=== PATIENT | female | born 1935 | race Caucasian/White ===

== ENCOUNTER → 2017-04-10 | Outpatient (CLI) | payer MEDICARE ==
[~2017-04-10] MED LIST: HYDR25TA6 PO; LISI40TA PO; OXYC-302 PO
== END ==
LOC: RAD 12:20
PROVIDERS: ATTEND Nurse Practitioner Family
DX: M41.86 Other forms of scoliosis, lumbar region (principal); M48.54XD Collapsed vertebra, not elsewhere classified, thoracic region, subsequent encounter for fracture with routine healing
CPT/HCPCS: 72072; 72110

== ENCOUNTER 2017-09-15 09:43 | Emergency (ER) | payer MEDICARE ==
[~2017-09-15] VITALS: Ht 165.1 cm; Wt 64.0 kg
[2017-09-15] MEDS ORDERED: SODIUM CHLORIDE FLUSH 10ML SYR IVF ONE (10:00)
[2017-09-15] MEDS ORDERED: SODIUM CHLORIDE 0.9% 1,000ML IVBOLUS ONE (10:00)
[2017-09-15 10:19] LABS: BASOPHILS # (AUTO) 0.03 x10^3/uL (0-0.1); BASOPHILS % (AUTO) 1 % (0-1); EOSINOPHILS # (AUTO) 0.13 x10^3/uL (0-0.4); EOSINOPHILS % (AUTO) 3 % (1-7); LYMPHOCYTES # (AUTO) 0.98 x10^3/uL (1-3.4); LYMPHOCYTES % (AUTO) 19 % (22-44); MD NO; MEAN CORPUSCULAR HEMOGLOBIN 32.1 pg (27.0-34.8); MEAN CORPUSCULAR HGB CONC 33.3 g/dL (32.4-35.8); MEAN CORPUSCULAR VOLUME 96.2 fL (80-100); MONOCYTES # (AUTO) 0.49 x10^3/uL (0.2-0.8); MONOCYTES % (AUTO) 10 % (2-9); NEUTROPHILS # (AUTO) 3.45 x10^3/uL (1.8-6.8); NEUTROPHILS % (AUTO) 68 % (42-75); PLATELET COUNT 214 x10^3/uL (130-400); RED BLOOD COUNT 3.32 x10^6/uL (3.82-5.3); RED CELL DISTRIBUTION WIDTH 14.3 % (9.6-15.2)
[2017-09-15 10:31] LABS: ALANINE AMINOTRANSFERASE 24 U/L (12-78); ALBUMIN 3.4 g/dL (3.4-5.0); ANION GAP 8 mmol/L (5-15); CALCIUM 8.5 mg/dL (8.5-10.1); CHLORIDE 109 mmol/L (98-107); CREATININE 1.88 mg/dL (0.55-1.02)
[2017-09-15 10:36] LABS: ALKALINE PHOSPHATASE 73 U/L (45-117); BILIRUBIN,TOTAL 0.6 mg/dL (0.2-1.0); TROPONIN I < 0.015 ng/mL (0.000-0.045)
[2017-09-15 11:21] VITALS: BP 122/64
== END 2017-09-15 11:35 | disposition home or self-care (01) ==
LOC: ED 11:25
DX: I95.9 Hypotension, unspecified (principal)
CPT/HCPCS: 36415; 71046; 80053; 84484; 85025; 93005; 96360; 99285; J7030

== ENCOUNTER 2017-09-29 10:04 | Observation (INO) | payer MEDICARE ==
[~2017-09-29] VITALS: Ht 165.1 cm; Wt 65.4 kg
[2017-09-29] MEDS ORDERED: LEVO50TA5 PO (10:19)
[2017-09-29] MEDS ORDERED: AMLO10TA2 PO (10:19)
[2017-09-29] MEDS ORDERED: MORPHINE SULFATE 4 MG/ML, 1ML ONE (10:24)
[2017-09-29] MEDS ORDERED: ONDANSETRON ODT 4 MG ONE (10:25)
[2017-09-29] MEDS ORDERED: SODIUM CHLORIDE 0.9% 1,000ML IVBOLUS ONE (10:30)
[2017-09-29] MEDS ORDERED: MORPHINE SULFATE 4 MG/ML, 1ML IVPush PRN (10:30)
[2017-09-29] MEDS ORDERED: ONDANSETRON ODT 4 MG PO ONE (10:30)
[2017-09-29] MEDS ORDERED: PLEASE ENTER HEIGHT AND WEIGHT MC SCH (10:30)
[2017-09-29] MEDS ORDERED: SODIUM CHLORIDE FLUSH 10ML SYR IVF ONE (10:30)
[2017-09-29 10:49] LABS: BASOPHILS # (AUTO) 0.02 x10^3/uL (0-0.1); BASOPHILS % (AUTO) 0 % (0-1); EOSINOPHILS # (AUTO) 0.08 x10^3/uL (0-0.4); EOSINOPHILS % (AUTO) 1 % (1-7); LYMPHOCYTES # (AUTO) 0.72 x10^3/uL (1-3.4); LYMPHOCYTES % (AUTO) 12 % (22-44); MD NO; MEAN CORPUSCULAR HEMOGLOBIN 32.4 pg (27.0-34.8); MEAN CORPUSCULAR HGB CONC 33.4 g/dL (32.4-35.8); MEAN CORPUSCULAR VOLUME 96.8 fL (80-100); MEAN PLATELET VOLUME 8.8 fL (7.4-10.4); MONOCYTES % (AUTO) 5 % (2-9); NEUTROPHILS # (AUTO) 4.75 x10^3/uL (1.8-6.8); NEUTROPHILS % (AUTO) 81 % (42-75); PLATELET COUNT 203 x10^3/uL (130-400); RED BLOOD COUNT 3.23 x10^6/uL (3.82-5.3); RED CELL DISTRIBUTION WIDTH 14.4 % (9.6-15.2)
[2017-09-29 10:58] LABS: INTERNATIONAL NORMALIZED RATIO 1.04 (0.93-1.1); PROTHROMBIN TIME 10.7 Seconds (9.6-11.5)
[2017-09-29 11:01] LABS: ALANINE AMINOTRANSFERASE 22 U/L (12-78); ALBUMIN 3.4 g/dL (3.4-5.0); ANION GAP 7 mmol/L (5-15); CALCIUM 9.5 mg/dL (8.5-10.1); CHLORIDE 111 mmol/L (98-107); CREATININE 1.84 mg/dL (0.55-1.02)
[2017-09-29 11:05] LABS: ALKALINE PHOSPHATASE 62 U/L (45-117); BILIRUBIN,TOTAL 0.4 mg/dL (0.2-1.0); TOTAL PROTEIN 6.7 g/dL (6.4-8.2)
[2017-09-29 13:39] LABS: MICROSCOPIC AUTO
[2017-09-29 13:40] LABS: CULTURE INDICATED? YES
[2017-09-29] MEDS ORDERED: ACETAMINOPHEN 325 MG TABLET PO PRN (14:00)
[2017-09-29 15:05] VITALS: BP 123/68
[2017-09-29] MEDS: SODIUM CHLORIDE 0.9% 1,000 ML IV SCH (16:40)
[2017-09-29] MEDS: HEPARIN 5,000 UNITS/ML, 1ML SQ SCH (16:40)
[2017-09-29] MEDS: CARVEDILOL 6.25 MG TABLET PO SCH (17:56)
[2017-09-29 18:33] VITALS: BP 119/68
[2017-09-29] MEDS: LISINOPRIL 20 MG TABLET PO SCH (20:16)
[2017-09-30] MEDS: HEPARIN 5,000 UNITS/ML, 1ML SQ SCH ×2 (01:15→08:22)
[2017-09-30 02:01] VITALS: BP 122/72
[2017-09-30 05:30] LABS: ANION GAP 5 mmol/L (5-15); CALCIUM 8.1 mg/dL (8.5-10.1); CHLORIDE 112 mmol/L (98-107); CREATININE 1.49 mg/dL (0.55-1.02)
[2017-09-30] MEDS: CARVEDILOL 6.25 MG TABLET PO SCH (05:41)
[2017-09-30 07:18] VITALS: BP 108/62
[2017-09-30] MEDS: LISINOPRIL 20 MG TABLET PO SCH (08:15)
[2017-09-30] MEDS ORDERED: LEVOTHYROXINE 50 MCG TABLET PO SCH (09:00)
[2017-09-30] MEDS ORDERED: CEFTRIAXONE PMX 2GM/50ML 50 ML IV SCH (13:00)
[2017-09-30] MEDS: SODIUM CHLORIDE 0.9% 1,000 ML IV SCH (13:06)
[2017-09-30 13:14] VITALS: BP 123/70
[2017-10-01] MEDS ORDERED: AMLODIPINE 5 MG TABLET PO SCH (09:00)
== END 2017-09-30 17:05 | disposition left against medical advice (07) ==
LOC: ED 11:36 → EDIP 13:06 → INTOOBSV 13:06 → 4EST 15:02
PROVIDERS: ADMIT Hospitalist; ATTEND Hospitalist
DX: R55 Syncope and collapse (principal); I12.9 Hypertensive chronic kidney disease with stage 1 through stage 4 chronic kidney disease, or unspecified chronic kidney disease; N18.3 Chronic kidney disease, stage 3 (moderate); E03.9 Hypothyroidism, unspecified; I95.0 Idiopathic hypotension; N17.9 Acute kidney failure, unspecified; N39.0 Urinary tract infection, site not specified; Z80.41 Family history of malignant neoplasm of ovary; Z83.3 Family history of diabetes mellitus; Z91.81 History of falling
CPT/HCPCS: 0399T; 36415; 71045; 76770; 80048; 80053; 81001; 83605; 83690; 83880; 84484; 85025; 85379; 85610; 85730; 87077; 87086; 87186; 93005; 93306; 93880; 96361; 96365; 96372; 96375; 97161; 99285; G0378; J0696; J1644; J7030; Q0162

== ENCOUNTER → 2018-09-11 | Outpatient (CLI) | payer MEDICARE ==
[~2018-09-11] MED LIST changes: +AMLO10TA8 PO; +LEVO50TA5 PO
== END | disposition home or self-care (01) ==
LOC: RAD 10:38
PROVIDERS: ATTEND Physician Assistant Surgical
DX: M48.061 Spinal stenosis, lumbar region without neurogenic claudication (principal); M25.78 Osteophyte, vertebrae; M85.88 Other specified disorders of bone density and structure, other site; M43.8X4 Other specified deforming dorsopathies, thoracic region; M43.8X6 Other specified deforming dorsopathies, lumbar region; Z96.643 Presence of artificial hip joint, bilateral; Z98.1 Arthrodesis status
CPT/HCPCS: 72110

== ENCOUNTER → 2018-09-16 | Outpatient (CLI) | payer MEDICARE | END | disposition home or self-care (01) | LOC: RAD 14:57 | PROVIDERS: ATTEND Physician Assistant Surgical | DX: M48.04 Spinal stenosis, thoracic region (principal); M46.04 Spinal enthesopathy, thoracic region; G89.29 Other chronic pain; Z98.890 Other specified postprocedural states | CPT/HCPCS: 72072 ==

== ENCOUNTER 2019-03-03 09:48 | Emergency (ER) | payer MEDICARE ==
[~2019-03-03] VITALS: Ht 165.1 cm; Wt 64.0 kg
[2019-03-03] MEDS ORDERED: ONDANSETRON 2MG/ML, 2ML ONE (10:25)
[2019-03-03] MEDS ORDERED: MORPHINE SULFATE 4 MG/ML, 1ML ONE (10:25)
[2019-03-03] MEDS ORDERED: ONDANSETRON 2MG/ML, 2ML IVPush ONE (10:30)
[2019-03-03] MEDS ORDERED: SODIUM CHLORIDE FLUSH 10ML SYR IVF ONE (10:30)
[2019-03-03 10:42] LABS: BASOPHILS # (AUTO) 0.04 x10^3/uL (0-0.1); BASOPHILS % (AUTO) 1 % (0-1); EOSINOPHILS # (AUTO) 0.09 x10^3/uL (0-0.4); EOSINOPHILS % (AUTO) 1 % (1-7); LYMPHOCYTES # (AUTO) 0.86 x10^3/uL (1-3.4); LYMPHOCYTES % (AUTO) 10 % (22-44); MD NO; MEAN CORPUSCULAR HEMOGLOBIN 33.1 pg (27.0-34.8); MEAN CORPUSCULAR HGB CONC 32.2 g/dL (32.4-35.8); MEAN CORPUSCULAR VOLUME 102.6 fL (80-100); MEAN PLATELET VOLUME 9.9 fL (7.4-10.4); MONOCYTES # (AUTO) 0.33 x10^3/uL (0.2-0.8); MONOCYTES % (AUTO) 4 % (2-9); NEUTROPHILS # (AUTO) 7.04 x10^3/uL (1.8-6.8); NEUTROPHILS % (AUTO) 84 % (42-75); PLATELET COUNT 211 x10^3/uL (130-400); RED BLOOD COUNT 3.36 x10^6/uL (3.82-5.3); RED CELL DISTRIBUTION WIDTH 14.8 % (9.6-15.2)
[2019-03-03] MEDS: MORPHINE SULFATE 4 MG/ML, 1ML IVPush PRN ×2 (10:47→12:07)
--- NOTE | 2019-03-03 10:47 | NUR ---
PT UP TO BEDSIDE COMMODE. NO URINE SAMPLE PROVIDED. PT HAD ONE MEDIUM LOOSE STOOL. SAMPLE COLLECTED AND SENT. PT ASSISTED BACK TO BED, MEDICATED PER MAR. DENIES ANY FURTHER NEEDS OR CONCERNS AT THIS TIME. CALL LIGHT IN REACH.
[2019-03-03 10:49] LABS: ALBUMIN 3.2 g/dL (3.4-5.0); ANION GAP 5 mmol/L (5-15); CALCIUM 8.8 mg/dL (8.5-10.1); CHLORIDE 112 mmol/L (98-107)
[2019-03-03 10:52] LABS: ALANINE AMINOTRANSFERASE 27 U/L (12-78); ALKALINE PHOSPHATASE 82 U/L (45-117); BILIRUBIN,TOTAL 0.5 mg/dL (0.2-1.0); CREATININE 1.77 mg/dL (0.55-1.02); TOTAL PROTEIN 6.8 g/dL (6.4-8.2)
[2019-03-03] MEDS ORDERED: ONDANSETRON ODT 4 MG ONE (11:17)
--- NOTE | 2019-03-03 11:38 | NUR ---
PT ASSISTED TO BEDSIDE COMMODE. INCONTINENT OF DIARRHEA. VERY LIGHT ASSISTANCE REQUIRED. LINENS CHANGED. PT PROVIDED WITH BRIEF, AND NEW SOCKS. DENIES ANY FURTHER NEEDS OR CONCERNS AT THIS TIME. CALL LIGHT IN REACH.
[2019-03-03] MEDS ORDERED: SODIUM CHLORIDE 0.9% 1,000ML IVBOLUS ONE (12:00)
[2019-03-03 12:03] LABS: CLOSTRIDIUM DIFFICILE ANTIGEN NEGATIVE; CLOSTRIDIUM DIFFICILE TOXIN NEGATIVE (Negative)
[2019-03-03 12:32] VITALS: BP 120/54
--- NOTE | 2019-03-03 13:19 | NUR ---
pt resting in bed, eyes closed, respirations even and unlabored. NAD noted. have attempted to contact pt live-in grandson multiple times. messages left. call light in reach. Elqe - [phone], or [phone]
== END 2019-03-03 15:11 | disposition home or self-care (01) ==
LOC: ED 11:58
DX: R11.2 Nausea with vomiting, unspecified (principal); R19.7 Diarrhea, unspecified; R42 Dizziness and giddiness; R55 Syncope and collapse; R10.30 Lower abdominal pain, unspecified; I10 Essential (primary) hypertension; Z90.49 Acquired absence of other specified parts of digestive tract; Z90.89 Acquired absence of other organs; Z86.39 Personal history of other endocrine, nutritional and metabolic disease
CPT/HCPCS: 36415; 74176; 80053; 83690; 85025; 87324; 89055; 93005; 96361; 96374; 96375; 99284; J2270; J2405; J7030

== ENCOUNTER 2020-08-23 15:47 | Emergency (ER) | payer MEDICARE ==
[~2020-08-23] VITALS: Ht 160 cm; Wt 64.0 kg
[~2020-08-23 15:47] MED LIST changes: +AMLO-211 PO; -AMLO10TA8 PO; -LISI40TA PO; +LISI40TA9 PO; -OXYC-302 PO; +OXYC1TAB14 PO
[2020-08-23] MEDS ORDERED: SODIUM CHLORIDE FLUSH 10ML SYR IVF ONE (16:00)
--- NOTE | 2020-08-23 16:23 | NUR ---
ASSUMED CARE OF PATIENT. PATIENT REPORTS CENTER CHEST PAIN X2 WEEKS. PT ALSO REPORTS BACK PAIN. HX OF BACK SURGERY. SYSTEM DISPATCHER ON. NSR NOTED. CALL LIGHT IN PLACE. PT GIVEN A PILLOW AND BLANKET FOR COMFORT. VS STABLE. CALL LIGHT IN PLACE. WILL CONTINUE TO MONITOR.
[2020-08-23 16:36] LABS: ALANINE AMINOTRANSFERASE 17 U/L (12-78); ALBUMIN 3.1 g/dL (3.4-5.0); ANION GAP 6 mmol/L (5-15); CALCIUM 9.5 mg/dL (8.5-10.1); CHLORIDE 111 mmol/L (98-107); CREATININE 1.59 mg/dL (0.55-1.02)
[2020-08-23 16:39] LABS: BASOPHILS % (AUTO) 0 % (0-1); EOSINOPHILS % (AUTO) 1 % (1-7); LYMPHOCYTES % (AUTO) 13 % (22-44); MEAN CORPUSCULAR HEMOGLOBIN 32.7 pg (27.0-34.8); MEAN CORPUSCULAR HGB CONC 33.7 g/dL (32.4-35.8); MONOCYTES % (AUTO) 7 % (2-9); NEUTROPHILS % (AUTO) 79 % (42-75); PLATELET COUNT 247 x10^3/uL (130-400); RED BLOOD COUNT 3.73 x10^6/uL (3.82-5.3); RED CELL DISTRIBUTION WIDTH 13.4 % (9.6-15.2)
[2020-08-23 16:40] LABS: MD NO
[2020-08-23 16:41] LABS: ALKALINE PHOSPHATASE 77 U/L (45-117); BILIRUBIN,TOTAL 0.3 mg/dL (0.2-1.0); TOTAL PROTEIN 7.4 g/dL (6.4-8.2); TROPONIN I < 0.015 ng/mL (0.000-0.045)
--- NOTE | 2020-08-23 17:15 | NUR ---
DR FUNK IN ROOM
--- NOTE | 2020-08-23 17:38 | NUR ---
PT AT CT
[2020-08-23] MEDS ORDERED: HYDR25TA6 PO (17:52)
[2020-08-23] MEDS ORDERED: LISI-170 PO (17:52)
--- NOTE | 2020-08-23 17:53 | NUR ---
pt back from ct. pt resting in room. cardiac cath technologist on. nsr noted. call light in place. will continue to monitor.
--- NOTE | 2020-08-23 18:47 | NUR ---
DR FUNK IN ROOM
--- NOTE | 2020-08-23 19:04 | NUR ---
PT WENT TO BATHROOM, PT NOT ABLE TO PROVIDE UA AT THIS TIME. DR FUNK AWARE
[2020-08-23 19:34] LABS: MICROSCOPIC NOT IND
[2020-08-23 20:54] VITALS: BP 146/82
--- NOTE | 2020-08-23 20:56 | NUR ---
PT IS A&0 X4. VS STABLE. PT REPORTS SHE WANTS TO GO HOME. DR FUNK AWARE. PT TO BE DISCHARGED PER DR FUNK.
== END 2020-08-23 21:12 | disposition home or self-care (01) ==
LOC: ED 18:44
DX: M51.34 Other intervertebral disc degeneration, thoracic region (principal); R10.32 Left lower quadrant pain; R10.31 Right lower quadrant pain; R94.31 Abnormal electrocardiogram [ECG] [EKG]; I10 Essential (primary) hypertension; E03.9 Hypothyroidism, unspecified; Z90.49 Acquired absence of other specified parts of digestive tract; Z90.89 Acquired absence of other organs
CPT/HCPCS: 36415; 71045; 72072; 74176; 80053; 81003; 83690; 84484; 85025; 93005; 99285

== ENCOUNTER 2020-10-19 12:08 | Outpatient (CLI) | payer MEDICARE ==
[~2020-10-19 12:08] MED LIST changes: +LISI-170 PO; +OXYC1TAB12 PO; -OXYC1TAB14 PO; +REGADENOSON 0.4 MG/5 ML SYRINGE ONE
== END 2020-10-19 23:59 | disposition home or self-care (01) ==
LOC: CFH 12:08
PROVIDERS: ATTEND Registered Nurse
DX: I10 Essential (primary) hypertension (principal); R94.31 Abnormal electrocardiogram [ECG] [EKG]
CPT/HCPCS: 78452; 93017; A9502; J2785